=== PATIENT | female | born 1980 | race Two or more races ===

== ENCOUNTER 2024-03-30 22:58 | Emergency (ER) | payer SELFPAY ==
[2024-03-30 23:01] VITALS: BMI 27.0
--- NOTE | 2024-03-30 23:29 | PC.NURSE ---
pt did not answer when name was called and was not found outside
--- NOTE | 2024-03-30 23:49 | PC.NURSE ---
pt did not answer when name was called and was not found outside for second time
== END 2024-03-30 23:57 | disposition left against medical advice (07) ==
LOC: SERX 03-31 00:02
PROVIDERS: Emergency Provider Emergency Medicine
DX: Z53.21 Procedure and treatment not carried out due to patient leaving prior to being seen by health care provider (principal)

== ENCOUNTER 2024-06-16 18:34 | Emergency (ER) | payer MEDICAID, SELFPAY ==
[2024-06-16 19:16] VITALS: BP 111/80; PULSE 83; RESP 19; TEMP 36.9; O2SAT 97; BMI 28.3
--- NOTE | 2024-06-16 19:21 | PD.EDBACK ---
ED Back Injury Pain RME/HPI General Chief Complaint: Back Pain/Injury Stated Complaint: lower back pain Time Seen by Provider: 06/16/24 19:20 Source: patient Arrival date/time: 06/16/24 18:34 43-year-old female with past medical history of chronic back pain awaiting referral to pain specialist presents emergency department complaining of back pain for several days. Patient reports taking muscle relaxers and Tylenol at home but has not improved. Patient has any fever, chills, nausea vomiting, hematuria, bowel or bladder dysfunction, bilateral lower extremity weakness, or any other associated symptom. Mode of arrival: ambulatory Limitations: no limitations Related Data Previous Rx's ?Medication ?Instructions ?Recorded dicyclomine 20 mg tablet 20 mg PO BID #20 tabs 01/22/23 lorazepam 0.5 mg tablet (Ativan) 0.5 mg PO BID PRN anxiety #6 tabs 09/03/23 tramadol 37.5 mg-acetaminophen 325 1 tab PO TID PRN pain #20 tabs 11/17/23 mg tablet hydroxyzine HCl 25 mg tablet 25 mg PO TID PRN anxiety #20 tabs 12/03/23 tramadol 50 mg tablet 50 mg PO Q8H PRN pain #14 tabs 04/05/24 acetaminophen 325 mg capsule 650 mg (2 x 325 mg) PO Q8HR PRN 04/20/24 (Tylenol) pain #20 caps trazodone 50 mg tablet 50 mg PO BID #14 tabs 04/20/24 acetaminophen 500 mg capsule 500 mg PO Q6H PRN pain #30 caps 06/16/24 Allergies Allergy/AdvReac Type Severity Reaction Status Date / Time ibuprofen Allergy Severe lips swell Verified 06/16/24 18:35 ketorolac [From Toradol] Allergy Severe Swelling Verified 06/16/24 18:35 of Lip/Tongue/Throat Penicillins Allergy Severe Hives Verified 06/16/24 18:35 Review of Systems Review of Systems Systems Reviewed: All systems reviewed, normal except as documented Constitutional Constitutional: Reports system reviewed and no additional complaints, except as documented, Denies body ache(s), Denies chills and Denies fever(s) Eyes Eyes: Reports system reviewed and no additional complaints, except as documented and Denies change in vision ENT Ears, Nose, Mouth, and Throat: Reports system reviewed and no additional complaints, except as documented, Denies disequilibrium, Denies dizziness, Denies sore throat and Denies vertigo Cardiovascular Cardiovascular: Reports system reviewed and no additional complaints, except as documented, Denies chest pain and Denies dyspnea Respiratory Respiratory: Reports system reviewed and no additional complaints, except as documented, Denies chest congestion, Denies cough and Denies dyspnea Gastrointestinal Gastrointestinal: Reports system reviewed and no additional complaints, except as documented, Denies abdominal pain, Denies nausea and Denies vomiting Musculoskeletal Musculoskeletal: Reports system reviewed and no additional complaints, except as documented, Denies abnormal gait, Denies arthralgias and Reports back pain Integumentary/Breasts Skin/Breast: Reports system reviewed and no additional complaints, except as documented, Denies erythema, Denies rash and Denies wounds Neurologic Neurologic: Reports system reviewed and no additional complaints, except as documented, Denies abnormal gait, Denies disequilibrium, Denies dizziness and Denies vertigo Past Medical History Past Medical History NEUROLOGIC: Negative Neurological Disorders CARDIAC: Negative Cardiac Disorders or Congestive Heart Failure RESPIRATORY: Negative Chronic Obstructive Pulmonary Disease (COPD) or Asthma GENITOURINARY: Positive Genitourinary Disorders; Negative Renal Disease MUSCULOSKELETAL: Negative Musculoskeletal Disorders ENT: Positive Blind ENDOCRINE: Positive Endocrine Disorders, Hypothyroidism and Pituitary Disease; Negative Diabetes Mellitus Type 1 or Diabetes Mellitus Type 2 HEMATOLOGIC: Negative Blood Disorders or Sickle Cell Disease Surgical History SURGICAL: Positive Cardiac Surgery and Tonsillectomy Social History SMOKING STATUS: Never smoker SUBSTANCE USE: does not use ED Exam General Limitations: Present no limitations General appearance: Present alert and in no apparent distress Head Head exam: Present atraumatic Eye Eye exam: Present normal appearance, PERRL and EOMI ENT ENT exam: Present normal exam, normal oropharynx and mucous membranes moist Neck Neck exam: Present normal inspection, full ROM and trachea midline Chest Chest inspection: Present normal inspection and symmetric chest wall rise Respiratory Respiratory exam: Present normal lung sounds bilaterally Cardiovascular Cardiovascular exam: Present regular rate, normal rhythm and normal heart sounds Abdominal Exam Abdominal exam: Present soft and normal bowel sounds; Absent tenderness Extremities Exam Extremities exam: Present normal inspection and full ROM Back Exam Back exam: Present normal inspection and full ROM; Absent CVA tenderness (R) or CVA tenderness (L) Neurological Exam Neurological exam: Present alert, oriented X3 and CN II-XII intact Psychiatric Psychiatric exam: Present normal affect and normal mood Skin Skin exam: Present warm, dry, intact and normal color Course Quality Measures none Orders Category Date Time Status traMADol HCL [Ultram] Med 06/16/24 19:22 Discontinued 50 mg PO X1 ONE Vital Signs Vital signs: Vital Signs Temperature 98.4 F 06/16/24 19:16 Pulse Rate 83 06/16/24 19:16 Respiratory Rate 19 06/16/24 19:16 Blood Pressure 111/80 06/16/24 19:16 Pulse Oximetry (%) 97 06/16/24 19:16 Oxygen Delivery Method Room Air 06/16/24 19:16 97% room air within normal limits Back Pain / Injury MDM Narrative MDM Narrative:: 43-year-old female with past medical history of chronic back pain awaiting referral to pain specialist presents emergency department complaining of back pain for several days. Patient reports taking muscle relaxers and Tylenol at home but has not improved. Patient has any fever, chills, nausea vomiting, hematuria, bowel or bladder dysfunction, bilateral lower extremity weakness, or any other associated symptom. Patient appears nontoxic and hemodynamically stable. Patient GCS of 15 ambulating independently with steady gait. Cruz's punch negative with no costovertebral angle tenderness. Patient given 1 dose of tramadol and discharged home on Tylenol and instructed to follow-up with primary care provider in 2 to 3 days. Instructed to return to emergency department for any worsening symptoms or as needed. Patient data External records reviewed:: [facility] previous records Clinical information provided by:: patient Social determinants that could affect healthcare access:: none Patient has the following chronic illnesses:: See chart How is presenting disease/condition affected by chronic disease/condition?: exacerbated by Evaluation data The following diagnostics were reviewed and interpreted by me:: other (specify) (N/A) Lab and/or radiology exams considered but not ordered:: N/A Interpretation Summary: N/A Medications / Prescriptions Medications or Prescriptions considered but not ordered:: Ordered Medication administrations:: Medication Administration History Discontinued Medications Tramadol HCl (Tramadol Hcl 50 Mg Tablet) 50 mg PO X1 ONE Stop: 06/16/24 19:23 Last Admin: 06/16/24 19:29 Dose: 50 mg Documented By: OA Given Consultations Consultation(s) initiated? (list below): No Diagnosis Differential diagnosis back pain/injury: lumbar radiculopathy, sciatica, strain of lumbar region, pyelonephritis, thoracic back pain, AAA and discitis Most likely diagnosis given after review of the tests above:: Back pain Admission Indicated Admission indicated?: not indicated Admission Request Was there a request for admission?: No Disposition Plan Disposition Plan: Discharge Discharge Attestation Discharge Attestation: The patient and all family members were given an opportunity to ask questions and understood the discharge instructions. Discharge instructions specifically effects, indications for sooner follow up or return to the emergency department, and the expected course of current diagnosis. Patient condition: Stable Discharge Plan Plan Patient Disposition: HOME (Self Care) Disposition Comment: Stable Prescriptions/Referrals Prescriptions/Med Rec: New acetaminophen 500 mg capsule 500 mg PO Q6H PRN (Reason: pain) Qty: 30 0RF No Action dicyclomine 20 mg tablet 20 mg PO BID Qty: 20 0RF lorazepam [Ativan] 0.5 mg tablet 0.5 mg PO BID PRN (Reason: anxiety) Qty: 6 0RF tramadol-acetaminophen 37.5-325 mg tablet 1 tab PO TID PRN (Reason: pain) Qty: 20 0RF hydroxyzine HCl 25 mg tablet 25 mg PO TID PRN (Reason: anxiety) Qty: 20 0RF tramadol 50 mg tablet 50 mg PO Q8H PRN (Reason: pain) Qty: 14 0RF trazodone 50 mg tablet 50 mg PO BID Qty: 14 0RF acetaminophen [Tylenol] 325 mg capsule 650 mg PO Q8HR PRN (Reason: pain) Qty: 20 0RF Problem List Clinical Impression: Back pain Patient/Caregiver Discharge Instructions Discharge Activity: activity as tolerated Education Materials: Anatomy of a Normal Spine, Back Basics: A Healthy Spine Additional Instructions: Take Tylenol along with your muscle relaxer for pain. Follow-up with primary care provider in 24 to 48 hours. Return to emergency department for any worsening symptoms or as needed. Print Language: Ethiopian Stand Alone Forms: No [employer] Info., Patient Portal Info Letter PA/NAILA Supervising Physician OZZY/NAILA Supervising Physician: Dr. Palomino
[2024-06-16] MEDS: traMADol HCL 50 MG TABLET PO (19:29)
== END 2024-06-16 20:07 | disposition home or self-care (01) ==
LOC: SERX 19:32
PROVIDERS: Emergency Provider Emergency Medicine; PCP Student in an Organized Health Care Education/Training Program
DX: M54.50 Low back pain, unspecified (principal); G89.29 Other chronic pain
CPT/HCPCS: 99282; A9270

== ENCOUNTER 2024-07-08 18:51 | Emergency (ER) | payer MEDICAID, SELFPAY ==
[2024-07-08 18:51] VITALS: BMI 28.3
[2024-07-08 19:19] VITALS: BP 112/76; PULSE 77; RESP 16; TEMP 36.7; O2SAT 98
--- NOTE | 2024-07-08 19:49 | XR_ITS ---
Examination: CT abdomen with intravenous contrast CT pelvis with intravenous contrast 2-D coronal reconstructions 2-D sagittal reconstructions Date and time of exam:July 08, 2024 1001 hrs. Comparison October 07, 2022. Indications: Right lower abdominal pain beginning 2 days ago CTDI: vol (mGy) 6.97 DLP: (mGycm) 371 Technique: Multiple axial sections of the abdomen and pelvis have been obtained. 64 slice high-resolution scanner used. 3 mm axial sections have been obtained, post intravenous injection 60 cc [id number] 2-D sagittal, coronal reconstructions obtained. Low dose protocols were performed. One or more of the following dose reduction techniques were used; automated exposure control, adjustment of the mA and/or KV according to patient size, use of iterative reconstruction technique. Findings: No focal liver or splenic lesions Absent gallbladder No pancreatic mass or peripancreatic edema No renal or ureteral calculi, no hydronephrosis Aorta normal size No bowel obstruction Normal appendix No pericecal inflammatory change No bowel obstruction or diverticulitis Urinary bladder intact Uterus is not visualized No pelvic mass Bladder intact Impression: Mild hepatomegaly, 19 cm no focal liver lesions No extrahepatic biliary tract dilatation No renal or ureteral calculi, no hydronephrosis No CT findings of appendicitis bowel obstruction or diverticulitis
--- NOTE | 2024-07-08 19:50 | EDRME_ITS ---
Rapid Medical Screening Exam [facility] Arrival date/time: 07/08/24 18:51 43F with history of hypothyroidism, hypoparathyroidism, asthma, cholecystectomy and unspecified visual condition presents to ED with several days of RLQ pain, N/V, and some non-bloody diarrhea. Patient denies dysuria and vaginal bleeding. Chief Complaint: Abdominal Pain Vital signs: Vital Signs Temperature 98.1 F 07/08/24 19:19 Pulse Rate 77 07/08/24 19:19 Respiratory Rate 16 07/08/24 19:19 Blood Pressure 112/76 07/08/24 19:19 Pulse Oximetry (%) 98 07/08/24 19:19 Oxygen Delivery Method Room Air 07/08/24 19:19
[2024-07-08 20:34] LABS: Collection Type, Urine Clean Catch
[2024-07-08] MEDS: ONDANSETRON INJ 2 MG/ML INJ 2 ML 4 MG IV (20:40)
[2024-07-08] MEDS: MORPHINE SULF INJ 10 MG/ML VIAL 5 MG IVP (20:41)
[2024-07-08 20:42] LABS: Bilirubin,Urine Negative (Negative); Blood,Urine 2+ (Negative); Clarity,Urine Clear (Clear/Hazy); Color,Urine Lt-Yellow (Lt Yel-Yel); Culture Indicated,Urine Not Indicated; Glucose, Urine Negative (Negative); Ketones,Urine Negative (Negative); Leukocyte Esterase,Urine Negative (Negative); Nitrite,Urine Negative (Negative); PH,Urine 5.5 (5.0-7.0); Protein,Urine Negative (Neg - Trace); RBC,Urine 2 /hpf (0-3); Specific Gravity,Urine 1.022 (1.001-1.035); Squamous Epithelial Cell,Urine < 1 /hpf (0-5); Urobilinogen,Urine Negative mg/dL (0.0-1.0); WBC,Urine 3 /hpf (0-5)
[2024-07-08 20:49] LABS: HCG Qualitative,Urine Negative
[2024-07-08 20:56] LABS: Amphetamine/Methamp Scrn,U Negative (Negative); Barbiturate Screen,Urine Negative (Negative); Benzodiazepines Screen,Urine Negative (Negative); Benzoylecgonine Screen, Ur Negative (Negative); Fentanyl Screen,Urine Negative (Negative); Opiate Screen,Urine Positive (Negative); THC Screen,Urine Negative (Negative)
[2024-07-08 20:59] LABS: Basophils # (Auto) 0.1 Thou/mm3 (0.0-0.2); Basophils % (Auto) 1 % (0-2.5); Eosinophils # (Auto) 0.1 Thou/mm3 (0.0-0.5); Eosinophils % (Auto) 1 % (0-10); Hematocrit 36.3 % (36.0-46.0); Hemoglobin 12.3 g/dL (12.0-16.0); Immature Granulocytes % (Auto) 1 % (0-0); Immature Granulocytes Auto 0.13 Thou/mm3 (0.00-0.00); Lymphocytes # (Auto) 3.7 Thou/mm3 (1.0-4.8); Lymphocytes % (Auto) 35 % (10-50); Mean Corpuscular HGB Conc 33.9 g/dl (31.0-37.0); Mean Corpuscular Volume 91 fL (80-100); Monocytes # (Auto) 0.5 Thou/mm3 (0.0-0.8); Monocytes % (Auto) 5 % (0-12); Neutrophils # (Auto) 6.2 Thou/mm3 (1.8-7.7); Neutrophils % (Auto) 58 % (37-80); Nucleated Red Blood Cell % 0 /100 WBC (0); Platelet Count 335 Thou/mm3 (140-440); RDW Standard Deviation 39.9 fL (36.4-46.3); Red Blood Count 3.97 Miln/mm3 (4.00-5.20); White Blood Count 10.8 Thou/mm3 (3.6-11.0)
[2024-07-08 21:38] LABS: Alanine Aminotransferase 29 U/L (10-49); Albumin, Serum 4.9 gm/dL (3.5-5.0); Albumin/Globulin Ratio 1.8 (1.2-2.2); Alkaline Phosphatase 143 U/L (46-116); Anion Gap 12 (7-16); Aspartate Amino Transferase 30 U/L (0-34); BUN/Creatinine Ratio 8 Ratio (12-20); Bilirubin,Total 0.2 mg/dL (0.3-1.2); Blood Urea Nitrogen 9 mg/dL (9-23); Calcium 9.3 mg/dL (8.3-10.6); Calcium (Corrected) 9.3 mg/dL (8.5-10.1); Carbon Dioxide 23.9 mMol/L (20.0-31.0); Chloride 102 mMol/L (98-107); Creatinine (Component) 1.1 mg/dL (0.6-1.3); Estimated Creatinine Clearance 59.4 mL/min (>60); Globulin 2.8 gm/dL (2.3-3.5); Glucose 89 mg/dL (74-106); Lipase 62 U/L (12-53); Osmolality,Calculated 273 (275-295); Potassium 3.9 mMol/L (3.4-5.1); Sodium 138 mMol/L (136-145); Total Protein 7.7 gm/dL (5.7-8.2); eGFR > 60 See Note
[2024-07-08] MEDS: ACETAMINOPHEN 500 MG TABLET 1000 MG PO (22:54)
== END 2024-07-08 23:11 | disposition left against medical advice (07) ==
PROVIDERS: Physician Assistant; Emergency Provider Emergency Medicine; PCP Student in an Organized Health Care Education/Training Program
DX: R10.31 Right lower quadrant pain (principal); R11.2 Nausea with vomiting, unspecified; R19.7 Diarrhea, unspecified; Z53.29 Procedure and treatment not carried out because of patient's decision for other reasons
CPT/HCPCS: 36415; 74177; 80053; 80307; 81001; 81025; 83690; 85025; 99281; A4649; J2270; J2405; Q9967; A9270